=== PATIENT | female | born 1995 | race African-American/Black ===

== ENCOUNTER → 2025-08-03 10:53 | Outpatient (REF) | payer OTHER, SELFPAY ==
[2025-08-04 16:44] LABS: Mumps Virus IgG Positive; Varicella Zoster IgG (VZV) Positive
== END ==
LOC: OHS 10:53
PROVIDERS: ATTENDING PHYSICIAN Nurse Practitioner Family
DX: Z23 Encounter for immunization (principal)
CPT/HCPCS: 36415; 86480; 86706; 86735; 86762; 86765; 86787